=== PATIENT | female | born 1990 | race Two or more races ===

== ENCOUNTER 2016-06-16 16:23 | Inpatient (IN) | payer BC ==
[~2016-06-16] VITALS: Ht 167.6 cm; Wt 74.8 kg
[2016-06-16 20:36] VITALS: Ht 167.6 cm; Wt 74.8 kg
[2016-06-16 20:45] VITALS: BP 118/68; PULSE 68; RESP 18
[2016-06-16] MEDS ORDERED: HYDROCODONE/APAP (5/325) TAB PO PRN (21:00)
[2016-06-16] MEDS ORDERED: ACETAMINOPHEN 325 MG TAB PO PRN (21:00)
[2016-06-16] MEDS ORDERED: ZOLPIDEM 5 MG TAB PO PRN (21:00)
[2016-06-16] MEDS: DEXTROSE 5%-0.45% NACL 1,000 ML IV SCH (21:39)
[2016-06-16] MEDS: morphine 2 MG INJ IV PRN (21:42)
[2016-06-16] MEDS: ONDANSETRON 4 MG INJ IV PRN (21:45)
[2016-06-17 05:21] LABS: INR 1.05; PROTIME 13.7 Sec (12.2-14.2); PT RATIO 1.1
[2016-06-17 05:22] LABS: PARTIAL THROMBOPLASTIN TIME 28.4 Sec (25.0-35.0)
[2016-06-17 05:27] LABS: BASOPHILS % 0.4 % (0.0-2.0); EOSINOPHILS # 0.1 10^3/ul (0.0-0.5); EOSINOPHILS % 1.5 % (0.0-7.0); HEMATOCRIT 36.3 % (37.0-47.0); HEMOGLOBIN 12.4 g/dl (12.0-16.0); LYMPHOCYTES # 3.1 10^3/ul (0.8-2.9); MEAN CORPUSCULAR VOLUME 88.2 fl (82.0-101.0); MEAN PLATELET VOLUME 10.1 fl (7.4-10.4); MONOCYTE # 0.5 10^3/ul (0.3-0.9); MONOCYTES % 5.6 % (0.0-11.0); NEUTROPHIL # 4.5 10^3/ul (1.6-7.5); NEUTROPHILS % 54.5 % (39.0-77.0); PLATELET COUNT 170 10^3/UL (140-440); RED BLOOD COUNT 4.12 10^6/ul (4.20-5.40); RED CELL DISTRIBUTION WIDTH 12.9 % (11.5-14.5); UNCORRECTED WBC 8.2 10^3/ul (4.8-10.8); WHITE BLOOD COUNT 8.2 10^3/ul (4.8-10.8)
[2016-06-17 05:33] LABS: ALBUMIN 3.7 g/dl (3.3-4.9)
[2016-06-17 05:34] LABS: POTASSIUM 3.5 mmol/L (3.5-5.1)
[2016-06-17] MEDS: PANTOPRAZOLE 40 MG INJ IV SCH (05:34)
[2016-06-17 05:36] LABS: ALBUMIN/GLOBULIN RATIO 1.32; BILIRUBIN,INDIRECT 0.9 mg/dl (0-1.1); BILIRUBIN,TOTAL 0.9 mg/dl (0.2-1.3); CREATININE 0.51 mg/dl (0.44-1.00); TOTAL PROTEIN 6.5 g/dl (6.1-8.1)
[2016-06-17 05:37] LABS: CALCIUM 8.6 mg/dl (8.4-10.2)
[2016-06-17 05:47] LABS: CONDITION 1
[2016-06-17 05:54] LABS: THYROID STIMULATING HORMONE 0.561 MIU/L (0.465-4.680)
[2016-06-17 08:08] VITALS: BP 111/62; RESP 16
[2016-06-17] MEDS: morphine 2 MG INJ IV PRN ×2 (10:20→22:01)
[2016-06-17] MEDS: DEXTROSE 5%-0.45% NACL 1,000 ML IV SCH (10:23)
--- NOTE | 2016-06-17 12:04 | QN ---
Documentation Comment [id number] KASSI GARCIA MD Jun 17, 2016 12:04
--- NOTE | 2016-06-17 12:43 | HP ---
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 Initially she was told she has anxiety, but hematocrit 36.3, sodium 140, potassium 3.5. Patient was transferred for further management. The patient had an ultrasound done there that showed gallstones. The patient is being monitored for further management, complaints of nausea and vomiting earlier, not at this point. Sodium see flow sheet, potassium 3.9. Patient has hematocrit 43.5 The patient was transferred for further management. PAST MEDICAL HISTORY: The patient has history of obesity, history of gastric banding. ALLERGY HISTORY: NEGATIVE. FAMILY HISTORY: Negative. SOCIAL HISTORY: Negative. MEDICATIONS AT HOME: Xanax. REVIEW OF SYSTEMS: HEENT: Unremarkable. RESPIRATORY: Unremarkable. CARDIOVASCULAR: Unremarkable. ABDOMEN: As mentioned above. EXTREMITIES: Unremarkable. GENITOURINARY: Unremarkable. MUSCULOSKELETAL: Unremarkable. PHYSICAL EXAMINATION: GENERAL: The patient is awake. VITAL SIGNS: Stable. HEAD: Atraumatic, normocephalic. Pupils equal, reactive to light. NECK: Supple. No JVD. LUNGS: Clear. CARDIOVASCULAR: S1, S2 normal. No rub or murmur. ABDOMEN: Soft, nontender. Bowel sounds present. No palpable mass or hepatosplenomegaly. No guarding, rebound tenderness. EXTREMITIES: There is no cyanosis, clubbing, or edema. CENTRAL NERVOUS SYSTEM: The patient is awake, alert, no focal deficit. LABORATORY DATA: As mentioned above. IMPRESSION: 1. Abdominal pain. 2. Gallstone. 3. History of laparoscopic banding. PLAN: To keep her n.p.o., IV fluid obtained. Obtain surgical consultation, PPI. Orders were done. Dictated By: KASSI GARCIA MD BS/NTS Conf#: [id number] DID#: [id number] [email or web address]
--- NOTE | 2016-06-17 14:09 | CONS ---
DATE OF ADMISSION: 06/16/2016 DATE OF CONSULTATION: 06/17/2016 TYPE OF CONSULTATION: Surgical. REFERRING PHYSICIAN: Gamaliel Milian MD CHIEF COMPLAINT: 1. Abdominal pain. 2. Gallstones. 3. BMI of 27. 4. Lap band. HISTORY OF PRESENT ILLNESS: Ms. Alejandra Maldonado is a 25-year-old female who has had multiple episo briana of epigastric abdominal pain, with radiation to the right back, associated with nausea and some chest pain. Previously she was told she has anxiety attacks. This last time she presented to [facility], where ultrasound identified gallstones, without inflammation. Labs were within normal. The patient also had chest x-ray and abdominal x-ray, which showed the band to be in normal positi on and angulation. The patient is transferred here for further care and treatment. A surgical cons ult is obtained for further evaluation. She denies any vomiting. She denies any fevers or chills. She is able to tolerate oral intake. She has normal bowel function. No dysuria or vaginal dischar ge. No trauma or sick contacts. No headache, visual or neurologic changes. No dysuria. PAST MEDICAL HISTORY: 1. History of obesity. 2. Gallstones. 3. Abdominal pain. 4. Back pain. 5. Chest pain. PAST SURGICAL HISTORY: 1. Lap band by Dr. Morris in [place] 6 years ago. 2. Nose job. MEDICATIONS: As per MAR. ALLERGIES: NONE. SOCIAL HISTORY: Denies alcohol, drugs or smoking cigarettes; however, smokes a lot of hookah. She is a nursing executive. FAMILY HISTORY: Noncontributory. REVIEW OF SYSTEMS: A 12-point review of systems was negative unless addressed in the HPI. PHYSICAL EXAMINATION: VITAL SIGNS: Temperature 98.4, pulse 60s to 90s, blood pressure 111/62, saturating 99% on room air. GENERAL: In no acute distress. HEENT: Pupils are equal and reactive. No scleral icterus. Mucous membranes are moist. NECK: Supple. No JVD. No crepitus. PULMONARY: Normal respiratory effort. No wheezing. CARDIAC: S1, S2 present. ABDOMEN: Soft, nontender. No rebound, no guarding. Negative Cotton's. No palpable hernias. Her port is just left lateral and superior to the umbilicus. EXTREMITIES: No edema. VASCULAR: Capillary refill is less than 2 seconds. NEUROLOGIC: Alert and oriented, moves all 4 extremities grossly. LYMPHATICS: Normal cervical and inguinal lymph nodes. LABORATORY AND RADIOGRAPHIC: As per chart and HPI. ASSESSMENT AND PLAN: Ms. Alejandra Maldonado is a 25-year-old female with: 1. Abdominal pain. Could be secondary to symptomatic cholelithiasis, and/or gallbladder dyskinesia , and/or peptic ulcer disease, and/or gastritis and/or lap band issues. Recommend antacids. Recomm end a GI evaluation. The patient wants to proceed with a cholecystectomy and that is a viable optio n; however, I advised the patient that I would not be able to guarantee the pain and her symptoms wo uld resolve. 2. History of morbid obesity. Status post lap band. Continue lap band maintenance. The patient w ill follow up with her bariatric surgeon. 3. Nausea. Probably secondary to #1. 4. Tobacco/Hookah smoker. Patient was encouraged to decrease or stop her tobacco use, especially w ith Hookah, you get a higher intense dose of it. Thank you very much for consulting me in this patient's care. Dictated By: YONATHAN BROWNE/GENOVEVA Conf#: [id number] DID#: [id number]
--- NOTE | 2016-06-17 18:50 | RADRPT ---
AMENDMENT: 06/17/2016 10:07:21 PM Malia Pennington MD Delayed images of the abdomen obtained at 4 hours post injection demonstrate a visualization of ashli rointestinal activity. Therefore, there is no definite evidence to suggest the presence of a common bile duct obstruction. PROCEDURE: HIDA scan CLINICAL INDICATION: 25 -year-old patient with abdominal pain. TECHNIQUE: Following the intravenous injection of 7.9 mCi of Tc-99m mebrofenin, multiple images of the abdomen were obtained up to 90 minutes post injection. COMPARISON: No prior studies. FINDINGS: The liver is promptly visualized, demonstrates homogeneous distribution of radionuclide. There is visualization of the common bile duct and gallbladder within normal time. Multiple images of the abdomen obtained up to 90 minutes post injection do not reveal physiologic sharlene wel activity. IMPRESSION: 1. No definite visualization of physiologic bowel activity up to 90 minutes post injection. 2. No evidence of a cystic duct obstruction. Delayed images to follow. RPTAT: QQ .Malia Pennington MD, MD Date Time Electronically viewed and signed by .Malia Pennington MD, on 06/17/2016 22:07 .L/
[2016-06-17 20:16] VITALS: BP 109/66; RESP 20
[2016-06-17] MEDS: ONDANSETRON 4 MG INJ IV PRN (22:00)
[2016-06-18] MEDS: DEXTROSE 5%-0.45% NACL 1,000 ML IV SCH ×4 (01:36→20:29)
[2016-06-18] MEDS: PANTOPRAZOLE 40 MG INJ IV SCH (05:42)
[2016-06-18 05:58] LABS: ALBUMIN 3.5 g/dl (3.3-4.9)
[2016-06-18 05:59] LABS: POTASSIUM 3.5 mmol/L (3.5-5.1)
[2016-06-18 06:01] LABS: ALBUMIN/GLOBULIN RATIO 1.25; BILIRUBIN,INDIRECT 0.7 mg/dl (0-1.1); BILIRUBIN,TOTAL 0.7 mg/dl (0.2-1.3); CREATININE 0.48 mg/dl (0.44-1.00); TOTAL PROTEIN 6.3 g/dl (6.1-8.1)
[2016-06-18 06:02] LABS: CALCIUM 8.6 mg/dl (8.4-10.2)
[2016-06-18 07:36] VITALS: BP 118/57; RESP 16
--- NOTE | 2016-06-18 10:43 | PN ---
Date/Time of Note Date/Time of Note DATE: 06/18/16 TIME: 10:38 Assessment/Plan Lines/Catheters Boss in Place (from [facility]): No Assessment/Plan Chief Complaint/Hosp Course 1. Abdominal pain. Could be secondary to symptomatic cholelithiasis, and/or gallbladder dyskinesia, and/or peptic ulcer disease, and/or gastritis and/or lap band issues. -Recommend antacids. -The patient wants to proceed with a cholecystectomy and that is a viable option ; however, I advised the patient that I would not be able to guarantee the pain and her symptoms would resolve. 2. History of morbid obesity. Status post lap band. Continue lap band maintenance. The patient will follow up with her bariatric surgeon. 3. Nausea. Probably secondary to #1. 4. Tobacco/Hookah smoker. Patient was encouraged to decrease or stop her tobacco use, especially with Hookah, you get a higher intense dose of it. Thank you Problems: Subjective 24 Hr Interval Summary Min nausea. No f/c//v/cp/sob/cp/mcguire/visual or neuro changes. No dysuria. Min pain. HIDA normal. Labs noted. Exam/Review of Systems Vital Signs Vitals Vital Signs Date Time Temp Pulse Resp B/P Pulse Ox O2 Delivery O2 Flow Rate FiO2 06/18/16 07:36 98.2 63 16 118/57 97 06/16/16 20:45 Room Air Intake and Output 06/17/16 06/17/16 06/18/16 15:00 23:00 07:00 Intake Total 475 ml 400 ml 600 ml Output Total 2 ml Balance 475 ml 398 ml 600 ml Exam Free Text/Dictation GENERAL: In no acute distress. HEENT: Pupils are equal and reactive. No scleral icterus. Mucous membranes are moist. NECK: Supple. No JVD. No crepitus. PULMONARY: Normal respiratory effort. No wheezing. CARDIAC: S1, S2 present. ABDOMEN: Soft, nontender. No rebound, no guarding. Negative Cotton's. No palpable hernias. Her port is just left lateral and superior to the umbilicus. EXTREMITIES: No edema. VASCULAR: Capillary refill is less than 2 seconds. NEUROLOGIC: Alert and oriented, moves all 4 extremities grossly. LYMPHATICS: Normal cervical and inguinal lymph nodes. Results Result Diagram: 06/17/16 0444 06/18/16 0520 YONATHAN GARCIA MD Jun 18, 2016 10:43
--- NOTE | 2016-06-18 17:35 | PN ---
Date/Time of Note Date/Time of Note DATE: 06/18/16 TIME: 17:34 Assessment/Plan VTE Prophylaxis VTE Prophylaxis Intervention: other Lines/Catheters IV [facility] Type [facility]from [facility] Peripheral IV Urinary Cath still in place: No Assessment/Plan Chief Complaint/Hosp Course IMPRESSION: 1. Abdominal pain. 2. Gallstone. 3. History of laparoscopic banding. plan per gi Problems: Subjective 24 Hr Interval Summary Cardiovascular: no complaints Gastrointestinal: pain (less) Exam/Review of Systems Vital Signs Vitals Vital Signs Date Time Temp Pulse Resp B/P Pulse Ox O2 Delivery O2 Flow Rate FiO2 06/18/16 07:36 98.2 63 16 118/57 97 06/16/16 20:45 Room Air Intake and Output 06/17/16 06/17/16 06/18/16 15:00 23:00 07:00 Intake Total 475 ml 400 ml 600 ml Output Total 2 ml Balance 475 ml 398 ml 600 ml Exam Respiratory: clear to auscultation Cardiovascular: regular rate and rhythm Gastrointestinal: soft Musculoskeletal: nl extremities to inspection Results Result Diagram: 06/17/16 0444 06/18/16 0520 Results 24 hrs Laboratory Tests Test 06/18/16 05:20 Alanine Aminotransferase (ALT/SGPT) 29 Albumin 3.5 Albumin/Globulin Ratio 1.25 Alkaline Phosphatase 40 L Anion Gap 13 Aspartate Amino Transf (AST/SGOT) 18 Blood Urea Nitrogen 6 L Calcium Level 8.6 Carbon Dioxide Level 27 Chloride Level 105 Creatinine 0.48 Direct Bilirubin 0.00 Globulin 2.80 Glucose Level 91 Indirect Bilirubin 0.7 Potassium Level 3.5 Sodium Level 141 Total Bilirubin 0.7 Total Protein 6.3 Medications Medications Current Medications Dextrose/Sodium Chloride (D5-1/2ns) 1,000 ml @ 70 mls/hr [id number] IV Last administered on 06/18/16 05:42; Admin Dose 70 MLS/HR; Start 06/16/16 at 21:00 Pantoprazole (Protonix Iv) 40 mg DAILY@06 IV Last administered on 06/18/16 05: 42; Admin Dose 40 MG; Start 06/17/16 at 06:00 Ondansetron HCl (Zofran Inj) 4 mg Q4H PRN IV NAUSEA AND/OR VOMITING Last administered on 06/17/16 22:00; Admin Dose 4 MG; Start 06/16/16 at 21:00 Acetaminophen (Tylenol Tab) 650 mg Q4H PRN PO PAIN AND OR ELEVATED TEMP; Start 06/16/16 at 21:00 Acetaminophen/ Hydrocodone Bitart ([place] (5/325)) 1 tab Q4H PRN PO moderate pain; Start 06/16/16 at 21:00 Morphine Sulfate (morphine) 2 mg Q4H PRN IV severe pain Last administered on t 22:01; Admin Dose 2 MG; Start 06/16/16 at 21:00 Zolpidem Tartrate (Ambien) 5 mg HS PRN PO INSOMNIA; Start 06/16/16 at 21:00 KASSI GARCIA MD Jun 18, 2016 17:35
[2016-06-18 19:00] VITALS: BP 120/65; RESP 18
[2016-06-19] VITALS (50 sets, daily range): BP systolic 70–126; BP diastolic 37–85; PULSE 56–97; RESP 14–29
[2016-06-19] MEDS: PANTOPRAZOLE 40 MG INJ IV SCH (05:38)
[2016-06-19] MEDS: DEXTROSE 5%-0.45% NACL 1,000 ML IV SCH ×2 (06:12→14:36)
[2016-06-19] MEDS ORDERED: EPINEPHrine 0.1 MG/ML SYG ONE (07:00)
[2016-06-19] MEDS ORDERED: PROPOFOL 200 MG INJ ONE (07:00)
[2016-06-19] MEDS ORDERED: PROPOFOL 1000 MG INJ ONE (07:00)
[2016-06-19] MEDS ORDERED: LIDOCAINE 1% (STERILE-PAK) 30 ML INJ ONE (10:22)
[2016-06-19] MEDS ORDERED: BUPIVACAINE 0.25%/EPI (SDV) 30 ML INJ ONE (10:23)
[2016-06-19] MEDS ORDERED: SUCCINYLCHOLINE CHLORIDE 100 MG/5 ML SYG IV ONE (10:45)
[2016-06-19] MEDS ORDERED: CEFAZOLIN 1 GM INJ ONE (10:45)
[2016-06-19] MEDS ORDERED: MIDAZOLAM 1 MG/ML 2 ML INJ ONE (10:45)
[2016-06-19] MEDS ORDERED: ROCURONIUM 50 MG INJ ONE (10:45)
[2016-06-19] MEDS ORDERED: PROPOFOL 20 ML ONE (10:45)
[2016-06-19] MEDS ORDERED: ONDANSETRON 4 MG INJ ONE (10:46)
[2016-06-19] MEDS ORDERED: DEXAMETHASONE 4 MG/ML 1 ML INJ ONE (10:46)
[2016-06-19] MEDS ORDERED: FENTAnyl 50 MCG/ML VIAL ONE (10:46)
[2016-06-19] MEDS ORDERED: ROPIVACAINE 0.2% 20 ML VIAL ONE (10:49)
--- NOTE | 2016-06-19 11:46 | PN ---
Date/Time of Note Date/Time of Note DATE: 06/19/16 TIME: 11:43 Assessment/Plan VTE Prophylaxis VTE Prophylaxis Intervention: SCD's Lines/Catheters IV Catheter Type (from [facility]rs): Peripheral IV Urinary Cath still in place: No Assessment/Plan Assessment/Plan 1. Symptomatic Cholelithiasis with Gallbladder Dyskinesia 2. History of morbid obesity. Status post lap band. 3. Nausea. Probably secondary to #1. 4. Tobacco/Hookah smoker. Plan: Pt desaturated prior to surgery and intubated for resp faiilure- surgery was aborted, transferred to ICU pulmonary consult to see pt General surgery has been following patient continue current care will follow up on Surgical follow up plan Subjective 24 Hr Interval Summary Free Text/Dictation pt desaturated prior to surgery , intubated on ventilator now transferred to ICU Exam/Review of Systems Vital Signs Vitals Vital Signs Date Time Temp Pulse Resp B/P Pulse Ox O2 Delivery O2 Flow Rate FiO2 06/19/16 07:34 98.4 53 20 120/56 98 06/16/16 20:45 Room Air Intake and Output 06/18/16 06/18/16 06/19/16 15:00 23:00 07:00 Intake Total 1600 ml 1270 ml Output Total 400 ml Balance 1600 ml 870 ml Exam intubated on ventilator Bilateral coarse BS+ S1 S2 RRR Soft, morbidly obese 1+ edema No c yanosis Results Result Diagram: 06/17/16 0444 06/18/16 0520 Medications Medications Current Medications Dextrose/Sodium Chloride (D5-1/2ns) 1,000 ml @ 70 mls/hr [id number] IV Last administered on 06/18/16 20:29; Admin Dose 70 MLS/HR; Start 06/16/16 at 21:00 Pantoprazole (Protonix Iv) 40 mg DAILY@06 IV Last administered on 06/19/16 05: 38; Admin Dose 40 MG; Start 06/17/16 at 06:00 Ondansetron HCl (Zofran Inj) 4 mg Q4H PRN IV NAUSEA AND/OR VOMITING Last administered on 06/17/16 22:00; Admin Dose 4 MG; Start 06/16/16 at 21:00 Acetaminophen (Tylenol Tab) 650 mg Q4H PRN PO PAIN AND OR ELEVATED TEMP; Start 06/16/16 at 21:00 Acetaminophen/ Hydrocodone Bitart ([place] (5/325)) 1 tab Q4H PRN PO moderate pain; Start 06/16/16 at 21:00 Morphine Sulfate (morphine) 2 mg Q4H PRN IV severe pain Last administered on t 22:01; Admin Dose 2 MG; Start 06/16/16 at 21:00 Zolpidem Tartrate (Ambien) 5 mg HS PRN PO INSOMNIA; Start 06/16/16 at 21:00 GWYN CUNNINGHAM MD Jun 19, 2016 11:46
[2016-06-19] MEDS ORDERED: PROPOFOL 100 ML ONE (12:03)
--- NOTE | 2016-06-19 12:12 | PN ---
Date/Time of Note Date/Time of Note DATE: 06/19/16 TIME: 12:08 Assessment/Plan Lines/Catheters IV C[facility]ter Type (from [facility]): Peripheral IV Boss in Place (from [facility]): No Assessment/Plan Chief Complaint/Hosp Course 1. Abdominal pain. Could be secondary to symptomatic cholelithiasis, and/or gallbladder dyskinesia, and/or peptic ulcer disease, and/or gastritis and/or lap band issues. -antacids. -consider band adjustment. patient reports following with her bariatric surgeon and it is not causing her any difficulty -the patient wants to proceed with a cholecystectomy and that is a viable option ; however, I advised the patient that I would not be able to guarantee the pain and her symptoms would resolve. 2. History of morbid obesity. Status post lap band. Continue lap band maintenance. The patient will follow up with her bariatric surgeon. 3. Nausea. Probably secondary to #1. 4. Tobacco/Hookah smoker. Patient was encouraged to decrease or stop her tobacco use, especially with Hookah, you get a higher intense dose of it. Thank you Problems: Subjective 24 Hr Interval Summary Min nausea. No f/c//v/cp/sob/cp/mcguire/visual or neuro changes. No dysuria. Min pain. Exam/Review of Systems Vital Signs Vitals Vital Signs Date Time Temp Pulse Resp B/P Pulse Ox O2 Delivery O2 Flow Rate FiO2 06/19/16 07:34 98.4 53 20 120/56 98 06/16/16 20:45 Room Air Intake and Output 06/18/16 06/18/16 06/19/16 15:00 23:00 07:00 Intake Total 1600 ml 1270 ml Output Total 400 ml Balance 1600 ml 870 ml Exam Free Text/Dictation GENERAL: In no acute distress. HEENT: Pupils are equal and reactive. No scleral icterus. Mucous membranes are moist. NECK: Supple. No JVD. No crepitus. PULMONARY: Normal respiratory effort. No wheezing. CARDIAC: S1, S2 present. ABDOMEN: Soft, nontender. No rebound, no guarding. Negative Cotton's. No palpable hernias. Her port is just left lateral and superior to the umbilicus. EXTREMITIES: No edema. VASCULAR: Capillary refill is less than 2 seconds. NEUROLOGIC: Alert and oriented, moves all 4 extremities grossly. LYMPHATICS: Normal cervical and inguinal lymph nodes. Results Result Diagram: 06/17/16 0444 06/18/16 0520 YONATHAN GARCIA MD Jun 19, 2016 12:12
--- NOTE | 2016-06-19 12:21 | OPR ---
Date/Time of Note Date/Time of Note DATE: 06/19/16 TIME: 12:12 Operative Report Procedure Date: Jun 19, 2016 Preoperative Diagnosis 1. Aspiration right at the time of intubation with desaturation 2. BMI 27 3. Lap band 4. Symptomatic cholelithiasis Postoperative Diagnosis 1. Aspiration right at the time of intubation with desaturation 2. BMI 27 3. Lap band 4. Symptomatic cholelithiasis Operation Performed 1. Bronchoscopy Surgeon: YONATHAN GARCIA MD Anesthesia: general Anesthesiologist: TITI DENNEY DO Estimated Blood Loss: minimal Tubes/Drains ETT Complications: None Pt Condition Post Procedure: stable Disposition: PACU Indications Patient was taken to the OR for a laparoscopic cholecystectomy. At the time of induction patient started vomiting and has saturations dropped significantly and skin color change to blue. At this point I was called into the room. The patient was intubated by anesthesiologist. Both sides sounded very junky. Decision was made to do a bronchoscopy to clean out the lungs as possible. Procedure Description Bronchoscope was inserted through the ET tube after saturations are 100%. There was minimal as serous fluid at the kelsey. This was suctioned out. No significant other amounts of fluid was identified. ET tube was above 3 cm above the kelsey. Bronchoscope was removed. YONATHAN GARCIA MD Jun 19, 2016 12:21
[2016-06-19] MEDS ORDERED: PANTOPRAZOLE 40 MG INJ IV ONE (12:30)
[2016-06-19] MEDS: PROPOFOL 100 ML IV SCH ×4 (12:30→22:57)
[2016-06-19] MEDS ORDERED: PROPOFOL 100 ML IV SCH (12:30)
[2016-06-19 12:33] LABS: AADO2 Arterial 249.2 mmHg (7.0-24.0); Allen Test ACCEPTAB; Arterial Base Excess -0.8 mmol/L (-3.0-3); Arterial COHb 0.5 % (0.0-3.0); Arterial HCO3 25.2 mmol/L (22.0-26.0); Arterial MetHb 0.2 % (0.0-1.5); Arterial Total Hemglobin 14.8 g/dl (12.0-18.0); MODE VENT - AC
--- NOTE | 2016-06-19 12:37 | RADRPT ---
PROCEDURE: XR Chest. CLINICAL INDICATION: Status post intubation TECHNIQUE: Single portable view of the chest was obtained COMPARISON: None FINDINGS: There is a new endotracheal tube 4 cm above the kelsey. There is a nasogastric tube coiled in the distal esophagus and extending back into the upper neck. The heart is normal in size. There is left upper lobe and right lower lobe atelectasis. There is no pleural effusion or pneumoth orax. RPTAT: AA IMPRESSION: New endotracheal tube in appropriate position. Nasogastric tube coiled in the distal esophagus and extending back into the upper neck. Removal and reinsertion is recommended. A call report was made and the findings discussed with nurse Yeh at 06/19/2016 12:34:13 PM. .Kraig Mena MD, Date Time Electronically viewed and signed by .Kraig Mena MD, on 06/19/2016 12:36 .S/
[2016-06-19 13:34] LABS: BASOPHILS % 0.2 % (0.0-2.0); EOSINOPHILS # 0.1 10^3/ul (0.0-0.5); HEMATOCRIT 46.7 % (37.0-47.0); HEMOGLOBIN 15.6 g/dl (12.0-16.0); LYMPHOCYTES % 17.4 % (15.0-51.0); MEAN CORPUSCULAR HEMOGLOBIN 29.6 pg (29.0-33.0); MEAN CORPUSCULAR HGB CONC 33.5 g/dl (32.0-37.0); MEAN CORPUSCULAR VOLUME 88.4 fl (82.0-101.0); MEAN PLATELET VOLUME 9.8 fl (7.4-10.4); MONOCYTE # 0.1 10^3/ul (0.3-0.9); MONOCYTES % 0.4 % (0.0-11.0); NEUTROPHIL # 9.2 10^3/ul (1.6-7.5); PLATELET COUNT 184 10^3/UL (140-440); RED BLOOD COUNT 5.28 10^6/ul (4.20-5.40); RED CELL DISTRIBUTION WIDTH 13.2 % (11.5-14.5); UNCORRECTED WBC 11.4 10^3/ul (4.8-10.8); WHITE BLOOD COUNT 11.4 10^3/ul (4.8-10.8)
[2016-06-19 13:36] LABS: CONDITION 1
[2016-06-19] MEDS: PIPER-TAZO 3.375 GM IV (PMX) 100 ML IVPB SCH ×3 (14:07→23:37)
[2016-06-19] MEDS: ENOXAPARIN 40 MG/0.4 ML SYG SC SCH (14:08)
[2016-06-19 14:23] LABS: ALBUMIN 4.1 g/dl (3.3-4.9)
[2016-06-19 14:24] LABS: POTASSIUM 3.7 mmol/L (3.5-5.1)
[2016-06-19 14:26] LABS: ALBUMIN/GLOBULIN RATIO 1.28; BILIRUBIN,INDIRECT 0.8 mg/dl (0-1.1); BILIRUBIN,TOTAL 0.8 mg/dl (0.2-1.3); CREATININE 0.55 mg/dl (0.44-1.00); TOTAL PROTEIN 7.3 g/dl (6.1-8.1)
[2016-06-19 14:27] LABS: CALCIUM 9.1 mg/dl (8.4-10.2)
[2016-06-19] MEDS ORDERED: FENTAnyl 1,000 MCG in DEXTROSE 5% 80 ML IV SCH (15:00)
--- NOTE | 2016-06-19 18:28 | CONS ---
DATE OF ADMISSION: 06/16/2016 DATE OF CONSULTATION: 06/19/2016 TYPE OF CONSULTATION: Pulmonary HISTORY OF PRESENT ILLNESS: Briefly, this is a 25-year-old female with a history of lap band surger y who was admitted 2 days prior with abdominal pain, found to have cholecystitis. She was planned t o undergo laparoscopic cholecystectomy today where her course was complicated by aspiration of fluid content despite being n.p.o. This possibly resulted due to the fact that she had a lap band and mcguire d some accumulation of bilious contents above the lap band. She was placed on a ventilator and brooks sferred from the operating room to the ICU. PAST MEDICAL HISTORY: As above. PAST SURGICAL HISTORY: Lap band. MEDICATIONS: Please see MAR. ALLERGIES: NONE. SOCIAL HISTORY: No tobacco, alcohol or illicit drug use. FAMILY HISTORY: Noncontributory. REVIEW OF SYSTEMS: Unable to obtain. PHYSICAL EXAMINATION: VITAL SIGNS: Blood pressure 120/56, oxygen saturation 98% on 100% Heart rate is 63, temperature is 98.4. HEENT: Normocephalic, atraumatic. NECK: Supple, no thyromegaly. ET tube is in place. CARDIOVASCULAR: Regular rate and rhythm, bradycardic, S1 and S2. CHEST: Diffuse wheezing bilaterally, left greater than right. ABDOMEN: Soft, nontender. EXTREMITIES: No cyanosis, clubbing or edema. LABORATORY DATA: Within normal limits. Chest x-ray is pending. However, per preliminary just at the bedside shows an ET tube being about 7 cm above the kelsey and a new left perihilar infiltrate, possibly due to aspiration. IMPRESSION: 1. Aspiration pneumonitis resulting in respiratory failure requiring intubation and mechanical vent ilation. 2. Cholecystitis, awaiting cholecystectomy. 3. History of lap band. RECOMMENDATIONS: 1. Vent support, reduce tidal volume to 450, reduce FIO2 as tolerated. I have already dropped it d own to 50% and obtain ABG. 2. Advance ET tube by 3 cm. 3. Although not significantly required for an aspiration pneumonitis, we will start Zosyn for the t goldie being and consider de-escalation very shortly. 4. Deep venous thrombosis prophylaxis with Lovenox and gastrointestinal prophylaxis with Protonix. Case discussed with Dr. Sandhu. Dictated By: WINNIE FAUST/GENOVEVA Conf#: [id number] DID#: [id number] CC: YONATHAN SANDHU MD; ;*[facility]
[2016-06-19] MEDS: ONDANSETRON 4 MG INJ IV PRN (22:36)
[2016-06-19] MEDS ORDERED: LORAZEPAM 2 MG INJ IV PRN (23:00)
[2016-06-20] VITALS (81 sets, daily range): BP systolic 63–130; BP diastolic 26–90; PULSE 67–122; RESP 13–33
[2016-06-20] MEDS: PROPOFOL 100 ML IV SCH ×2 (03:35→09:37)
[2016-06-20] MEDS: DEXTROSE 5%-0.45% NACL 1,000 ML IV SCH ×2 (04:41→12:01)
[2016-06-20 04:58] LABS: Allen Test ACCEPTAB; Arterial Base Excess -0.2 mmol/L (-3.0-3); Arterial COHb 0.1 % (0.0-3.0); Arterial Fraction of Oxyhgb 97.8 % (93.0-99.0); Arterial HCO3 24.4 mmol/L (22.0-26.0); Arterial MetHb 0.2 % (0.0-1.5); Arterial Total Hemglobin 13.4 g/dl (12.0-18.0); MODE VENT - AC
[2016-06-20] MEDS: PIPER-TAZO 3.375 GM IV (PMX) 100 ML IVPB SCH ×3 (05:50→18:08)
[2016-06-20] MEDS: PANTOPRAZOLE 40 MG INJ IV SCH (05:50)
[2016-06-20 07:04] LABS: EOSINOPHILS # 0.1 10^3/ul (0.0-0.5); EOSINOPHILS % 0.8 % (0.0-7.0); HEMATOCRIT 35.5 % (37.0-47.0); HEMOGLOBIN 12.2 g/dl (12.0-16.0); LYMPHOCYTES # 1.2 10^3/ul (0.8-2.9); LYMPHOCYTES % 8.3 % (15.0-51.0); MEAN CORPUSCULAR HGB CONC 34.3 g/dl (32.0-37.0); MEAN CORPUSCULAR VOLUME 87.5 fl (82.0-101.0); MEAN PLATELET VOLUME 10.1 fl (7.4-10.4); MONOCYTE # 0.3 10^3/ul (0.3-0.9); NEUTROPHIL # 12.3 10^3/ul (1.6-7.5); NEUTROPHILS % 88.9 % (39.0-77.0); PLATELET COUNT 132 10^3/UL (140-440); RED BLOOD COUNT 4.05 10^6/ul (4.20-5.40); RED CELL DISTRIBUTION WIDTH 13.2 % (11.5-14.5); UNCORRECTED WBC 13.9 10^3/ul (4.8-10.8); WHITE BLOOD COUNT 13.9 10^3/ul (4.8-10.8)
[2016-06-20 07:09] LABS: CONDITION 1
[2016-06-20 07:13] LABS: INR 1.38; PT RATIO 1.3
[2016-06-20 07:14] LABS: PARTIAL THROMBOPLASTIN TIME 26.3 Sec (25.0-35.0)
[2016-06-20 07:15] LABS: ALBUMIN 3.1 g/dl (3.3-4.9); POTASSIUM 3.4 mmol/L (3.5-5.1)
[2016-06-20 07:17] LABS: CREATININE 0.5 mg/dl (0.44-1.00)
[2016-06-20 07:18] LABS: ALBUMIN/GLOBULIN RATIO 1.19; CALCIUM 8.2 mg/dl (8.4-10.2); TOTAL PROTEIN 5.7 g/dl (6.1-8.1)
--- NOTE | 2016-06-20 08:59 | RADRPT ---
Vent Rate: 80 bpm RR Interval: 0 msec NE Interval: 122 msec QRS Duration: 100 msec QT Interval: 398 msec QTC Interval: 459 msec P-R-T Riddle: 57 - 96 - 46 degrees Normal sinus rhythm Right atrial enlargement Rightward axis Incomplete right bundle branch block Nonspecific ST abnormality Abnormal ECG Electronically Signed By: Yaya Sullivan [id number]
[2016-06-20] MEDS: ENOXAPARIN 40 MG/0.4 ML SYG SC SCH (09:00)
--- NOTE | 2016-06-20 10:15 | RADRPT ---
PROCEDURE: XR Chest. CLINICAL INDICATION: ACUTE RESP FAILURE, INTUBATED ON VENTILAOTR TECHNIQUE: Portable single view of the chest COMPARISON: 06/19 FINDINGS: Endotracheal tube remains in good position. The nasogastric tube has been repositioned and now loop s in the lower chest but the distal end is in the stomach. This may be looping within a hiatal dinah ia. There has been significant increase in patchy pulmonary opacity bilaterally which may be due to infection or edema. The heart size does not appear enlarged and no pleural effusion is seen. Prob able gastric band is seen in the left upper quadrant. IMPRESSION: Tip of a nasogastric tube now within the stomach although looped in either the distal esophagus or m ore likely a hiatal hernia. Significant development of patchy bilateral lung infiltrates which may be due to infection or edema. Endotracheal tube remains in good position. RPTAT: HLBE Physician Renzo Date Time Electronically viewed and signed by Katey Holden Physician on 06/20/2016 10:15 LE/
--- NOTE | 2016-06-20 10:43 | PN ---
Date/Time of Note Date/Time of Note DATE: 06/20/16 TIME: 10:39 Assessment/Plan VTE Prophylaxis VTE Prophylaxis Intervention: LMWH Lines/Catheters IV Catheter Type (from Nrsg): Peripheral IV Urinary Cath still in place: Yes Reason Cath still needed: urinary retention, other (indicate) (intubated on ventilator ) Assessment/Plan Assessment/Plan 1. Aspiration pneumonitis resulting in respiratory failure requiring intubation and mechanical ventilation. 2. Recurrent Biliary colic, awaiting cholecystectomy. 3. History of lap band. 4. Morbid obesity Plan: continue Ventilator care as per pulmonary-w eaning plan for today General surgery following lovenox for DVT prophylaxis IV abx IVF GI Consutl requested Dr.David Olivarez to see pt Subjective 24 Hr Interval Summary Free Text/Dictation pt remains intubated, GI consult requested for Evaluation , Pulmonary following , required IV ativan for agitation overnight Exam/Review of Systems Vital Signs Vitals Vital Signs Date Time Temp Pulse Resp B/P Pulse Ox O2 Delivery O2 Flow Rate FiO2 06/20/16 09:45 79 15 111/62 99 06/20/16 09:30 Mechanical Ventilator 06/20/16 08:00 45 06/20/16 08:00 99.3 Intake and Output 06/19/16 06/19/16 06/20/16 15:00 23:00 07:00 Intake Total 253 ml 744.94 ml 926.95 ml Output Total 130 ml 340 ml 265 ml Balance 123 ml 404.94 ml 661.95 ml Exam sedated + ET tube, No JVD Clear BS S1 S2 RRR no murmur Soft, Obese abdomen 1+ edema Results Result Diagram: 06/20/16 0633 06/20/16 0633 Results 24 hrs Laboratory Tests Test 06/19/16 12:30 06/19/16 13:20 06/20/16 05:00 06/20/16 06:33 Arterial Blood HCO3 25.2 24.4 Arterial Blood Base Excess -0.8 -0.2 Arterial Blood Oxygen Saturation 88.6 L 98.1 H Evens Test ACCEPTAB ACCEPTAB Arterial Blood Gas Puncture Site Right Radial Right Radial Arterial Blood Carboxyhemoglobin 0.5 0.1 Arterial Blood Date Drawn 06/19/2016 12:25:54 PM 06/20/2016 4:46:31 AM Arterial Blood Methemoglobin 0.2 0.2 Arterial Blood pCO2 (Temp correct) 46.3 H 39.8 Arterial Blood pH (Temp corrected) 7.353 7.405 Arterial Blood pO2 (Temp corrected) 55.2 L 112.0 H Blood Gas A-a O2 Differential 249.2 H 272.0 H Blood Gas Actual Respiration Rate 23 16 Blood Gas Low PEEP Setting 5.0 5.0 Blood Gas Modality VENT - AC VENT - AC Blood Gas Notified Time 06/19/2016 12:33:45 PM 06/20/2016 4:57:47 AM Blood Gas Notified Whom TM LW Blood Gas Respiration Rate 14.0 14.0 Blood Gas Specimen Source Blood arterial Blood arterial Blood Gas Temperature 37.0 37.0 Blood Gas Tidal Volume 450.0 450.0 FiO2 50.0 60.0 Oxyhemoglobin Percent 88.0 L 97.8 Total Hemoglobin 14.8 13.4 Alanine Aminotransferase (ALT/SGPT) 30 28 Albumin 4.1 3.1 #L Albumin/Globulin Ratio 1.28 1.19 Alkaline Phosphatase 67 # 42 Anion Gap 22 #H 14 # Aspartate Amino Transf (AST/SGOT) 100 H 12 L Basophils # 0.0 0.0 Basophils % 0.2 0.0 Blood Urea Nitrogen 5 L 6 L Calcium Level 9.1 8.2 L Carbon Dioxide Level 22 26 Chloride Level 106 104 Creatinine 0.55 0.50 Direct Bilirubin 0.00 0.00 Eosinophils # 0.1 0.1 Eosinophils % 1.0 0.8 Globulin 3.20 2.60 Glucose Level 91 95 Hematocrit 46.7 # 35.5 #L Hemoglobin 15.6 # 12.2 # Indirect Bilirubin 0.8 1.0 Lymphocytes # 2.0 1.2 Lymphocytes % 17.4 8.3 L Mean Corpuscular Hemoglobin 29.6 30.0 Mean Corpuscular Hemoglobin Concent 33.5 34.3 Mean Corpuscular Volume 88.4 87.5 Mean Platelet Volume 9.8 10.1 Monocytes # 0.1 L 0.3 Monocytes % 0.4 2.0 Neutrophils # 9.2 H 12.3 H Neutrophils % 81.0 H 88.9 H Nucleated Red Blood Cells # 0.0 0.0 Nucleated Red Blood Cells % 0.0 0.0 Platelet Count 184 132 #L Potassium Level 3.7 3.4 L Red Blood Count 5.28 # 4.05 #L Red Cell Distribution Width 13.2 13.2 Sodium Level 146 H 141 Total Bilirubin 0.8 1.0 Total Protein 7.3 # 5.7 #L Troponin I < 0.010 White Blood Count 11.4 #H 13.9 #H Blood Gas Inspiratory Pressure 24.0 Activated Partial Thromboplast Time 26.3 INR International Normalized Ratio 1.38 Prothrombin Time 17.0 #H Prothrombin Time Ratio 1.3 Medications Medications Current Medications Dextrose/Sodium Chloride (D5-1/2ns) 1,000 ml @ 70 mls/hr [id number] IV Last administered on 06/20/16 04:41; Admin Dose 70 MLS/HR; Start 06/16/16 at 21:00 Pantoprazole (Protonix Iv) 40 mg DAILY@06 IV Last administered on 06/20/16 05: 50; Admin Dose 40 MG; Start 06/17/16 at 06:00 Ondansetron HCl (Zofran Inj) 4 mg Q4H PRN IV NAUSEA AND/OR VOMITING Last administered on 06/19/16 22:36; Admin Dose 4 MG; Start 06/16/16 at 21:00 Morphine Sulfate 2 mg 2 mg Q4H PRN IV severe pain Last administered on 22:01; Admin Dose 2 MG; Start 06/16/16 at 21:00 Propofol (Diprivan) 100 ml @ 2.244 mls/ hr Q12H IV Last administered on 09:37; Admin Dose 17.952 MLS/HR; Start 06/19/16 at 12:30 Enoxaparin Sodium 40 mg 40 mg DAILY SC Last administered on 06/19/16 14:08; Admin Dose 40 MG; Start 06/19/16 at 12:30 Piperacillin Sod/ Tazobactam Sod 100 ml @ 200 mls/hr Q6 IVPB Last administered on 06/20/16 05:50; Admin Dose 200 MLS/HR; Start 06/19/16 at 12:30 Fentanyl/Dextrose (D5W) 100 ml @ 2.5 mls/hr TITRATE IV Last administered on 15:18; Admin Dose 2.5 MLS/HR; Start 06/19/16 at 15:00 Lorazepam (Ativan) 2 mg Q4 PRN IV Anxiety Last administered on 1/7/17at 22:56; Admin Dose 2 MG; Start 06/19/16 at 23:00 GWYN CUNNINGHAM MD Jun 20, 2016 10:43
[2016-06-20] MEDS ORDERED: POTASSIUM CHLORIDE 20 MEQ in SOD CHLORIDE 0.9% 100 ML IVPB ONE (11:00)
--- NOTE | 2016-06-20 11:27 | CONS ---
Date/Time of Note Date/Time of Note DATE: 06/20/16 TIME: 11:18 Assessment/Plan Assessment/Plan Chief Complaint/Hosp Course Impression: 1. Aspiration pneumonitis resulting in respiratory failure requiring intubation and mechanical ventilation. 2. Recurrent Biliary colic, awaiting cholecystectomy. 3. History of lap band leading to worsening nausea and vomiting 4. h/o obesity Recommendation: - continue Ventilator care as per pulmonary-w eaning plan for today - will discuss with Dr. Sandhu regarding EGD now vs release of lap band then EGD to evaluate her nausea - IV abx - continue IVF - at this time, no indication for ERCP as there is no CBD stone. 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 w/u showed symptomatic gallstones and was taken for cholecystectomy. However, patient aspirated during the inbation s/p bronchoscopy instead. Now patient is intubated, sedated. History taken from patient's family who is at bedside. Per family, patient is s/p lap band 6 yrs ago, since has progressively worsening n/ v. Family wants GI evaluation for her n/v. unable to obtain due to patient being intubated and sedated. Other ROS documented in HPI. Cardiovascular: no complaints Gastrointestinal: pain (less) Past Medical History Medical History: gallstones, GERD Past Surgical History lap band, rhinoplasty Family History Significant Family History: no pertinent family hx Social History smokes a lot of hookah Alcohol Use: none Smoking Status: Never smoker Drug Use: none Exam/Review of Systems Vital Signs Vitals Vital Signs Date Time Temp Pulse Resp B/P Pulse Ox O2 Delivery O2 Flow Rate FiO2 06/20/16 09:45 79 15 111/62 99 06/20/16 09:30 Mechanical Ventilator 06/20/16 08:00 45 06/20/16 08:00 99.3 Intake and Output 06/19/16 06/19/16 06/20/16 15:00 23:00 07:00 Intake Total 253 ml 744.94 ml 926.95 ml Output Total 130 ml 340 ml 265 ml Balance 123 ml 404.94 ml 661.95 ml Exam Constitutional: non-verbal Head: atraumatic, normocephalic Eyes: EOMI, nl conjunctiva, nl lids, nl sclera ENMT: mucosa pink and moist, nl external ears & nose, nl lips & teeth Neck: non-tender, supple Respiratory: clear to auscultation, normal air movement Cardiovascular: nl pulses, regular rate and rhythm Gastrointestinal: bowel sounds, nl liver, spleen, non-tender, soft Results Result Diagram: 06/20/16 0633 06/20/16 0633 Results 24 hrs Laboratory Tests Test 06/19/16 12:30 06/19/16 13:20 06/20/16 05:00 06/20/16 06:33 Arterial Blood HCO3 25.2 24.4 Arterial Blood Base Excess -0.8 -0.2 Arterial Blood Oxygen Saturation 88.6 L 98.1 H Evens Test ACCEPTAB ACCEPTAB Arterial Blood Gas Puncture Site Right Radial Right Radial Arterial Blood Carboxyhemoglobin 0.5 0.1 Arterial Blood Date Drawn 06/19/2016 12:25:54 PM 06/20/2016 4:46:31 AM Arterial Blood Methemoglobin 0.2 0.2 Arterial Blood pCO2 (Temp correct) 46.3 H 39.8 Arterial Blood pH (Temp corrected) 7.353 7.405 Arterial Blood pO2 (Temp corrected) 55.2 L 112.0 H Blood Gas A-a O2 Differential 249.2 H 272.0 H Blood Gas Actual Respiration Rate 23 16 Blood Gas Low PEEP Setting 5.0 5.0 Blood Gas Modality VENT - AC VENT - AC Blood Gas Notified Time 06/19/2016 12:33:45 PM 06/20/2016 4:57:47 AM Blood Gas Notified Whom TM LW Blood Gas Respiration Rate 14.0 14.0 Blood Gas Specimen Source Blood arterial Blood arterial Blood Gas Temperature 37.0 37.0 Blood Gas Tidal Volume 450.0 450.0 FiO2 50.0 60.0 Oxyhemoglobin Percent 88.0 L 97.8 Total Hemoglobin 14.8 13.4 Alanine Aminotransferase (ALT/SGPT) 30 28 Albumin 4.1 3.1 #L Albumin/Globulin Ratio 1.28 1.19 Alkaline Phosphatase 67 # 42 Anion Gap 22 #H 14 # Aspartate Amino Transf (AST/SGOT) 100 H 12 L Basophils # 0.0 0.0 Basophils % 0.2 0.0 Blood Urea Nitrogen 5 L 6 L Calcium Level 9.1 8.2 L Carbon Dioxide Level 22 26 Chloride Level 106 104 Creatinine 0.55 0.50 Direct Bilirubin 0.00 0.00 Eosinophils # 0.1 0.1 Eosinophils % 1.0 0.8 Globulin 3.20 2.60 Glucose Level 91 95 Hematocrit 46.7 # 35.5 #L Hemoglobin 15.6 # 12.2 # Indirect Bilirubin 0.8 1.0 Lymphocytes # 2.0 1.2 Lymphocytes % 17.4 8.3 L Mean Corpuscular Hemoglobin 29.6 30.0 Mean Corpuscular Hemoglobin Concent 33.5 34.3 Mean Corpuscular Volume 88.4 87.5 Mean Platelet Volume 9.8 10.1 Monocytes # 0.1 L 0.3 Monocytes % 0.4 2.0 Neutrophils # 9.2 H 12.3 H Neutrophils % 81.0 H 88.9 H Nucleated Red Blood Cells # 0.0 0.0 Nucleated Red Blood Cells % 0.0 0.0 Platelet Count 184 132 #L Potassium Level 3.7 3.4 L Red Blood Count 5.28 # 4.05 #L Red Cell Distribution Width 13.2 13.2 Sodium Level 146 H 141 Total Bilirubin 0.8 1.0 Total Protein 7.3 # 5.7 #L Troponin I < 0.010 White Blood Count 11.4 #H 13.9 #H Blood Gas Inspiratory Pressure 24.0 Activated Partial Thromboplast Time 26.3 INR International Normalized Ratio 1.38 Prothrombin Time 17.0 #H Prothrombin Time Ratio 1.3 Medications Medications Current Medications Dextrose/Sodium Chloride (D5-1/2ns) 1,000 ml @ 70 mls/hr [id number] IV Last administered on 06/20/16 04:41; Admin Dose 70 MLS/HR; Start 06/16/16 at 21:00 Pantoprazole (Protonix Iv) 40 mg DAILY@06 IV Last administered on 06/20/16 05: 50; Admin Dose 40 MG; Start 06/17/16 at 06:00 Ondansetron HCl (Zofran Inj) 4 mg Q4H PRN IV NAUSEA AND/OR VOMITING Last administered on 06/19/16 22:36; Admin Dose 4 MG; Start 06/16/16 at 21:00 Morphine Sulfate 2 mg 2 mg Q4H PRN IV severe pain Last administered on 22:01; Admin Dose 2 MG; Start 06/16/16 at 21:00 Propofol (Diprivan) 100 ml @ 2.244 mls/ hr Q12H IV Last administered on 09:37; Admin Dose 17.952 MLS/HR; Start 06/19/16 at 12:30 Enoxaparin Sodium 40 mg 40 mg DAILY SC Last administered on 06/19/16 14:08; Admin Dose 40 MG; Start 06/19/16 at 12:30 Piperacillin Sod/ Tazobactam Sod 100 ml @ 200 mls/hr Q6 IVPB Last administered on 06/20/16 05:50; Admin Dose 200 MLS/HR; Start 06/19/16 at 12:30 Fentanyl/Dextrose (D5W) 100 ml @ 2.5 mls/hr TITRATE IV Last administered on 15:18; Admin Dose 2.5 MLS/HR; Start 06/19/16 at 15:00 Lorazepam 2 mg 2 mg Q4 PRN IV Anxiety Last administered on 06/19/16 22:56; Admin Dose 2 MG; Start 06/19/16 at 23:00 Potassium Chloride/Sodium Chloride (KCl/NS) 110 ml @ 55 mls/hr ONCE ONCE IVPB ; Start 06/20/16 at 11:00; Stop 06/20/16 at 12:59 EM MILTON MD Jun 20, 2016 11:27
[2016-06-20] MEDS: ONDANSETRON 4 MG INJ IV PRN (12:21)
--- NOTE | 2016-06-20 13:02 | CONS ---
Date/Time of Note Date/Time of Note DATE: 06/20/16 TIME: 12:58 Consult Date/Type/Reason Admit Date/Time Jun 16, 2016 at 20:03 Initial Consult Date Type of Consultation: Pulm Subjective Awake and alert on propofol gtt and on MV. Objective Vital Signs Date Time Temp Pulse Resp B/P Pulse Ox O2 Delivery O2 Flow Rate FiO2 06/20/16 12:15 96 20 113/60 98 06/20/16 12:00 30 06/20/16 12:00 100.0 Mechanical Ventilator Intake and Output 06/19/16 06/19/16 06/20/16 15:00 23:00 07:00 Intake Total 253 ml 744.94 ml 926.95 ml Output Total 130 ml 340 ml 265 ml Balance 123 ml 404.94 ml 661.95 ml HEENT: Normocephalic, atraumatic. NECK: Supple, no thyromegaly. ET tube is in place. CARDIOVASCULAR: Regular rate and rhythm, bradycardic, S1 and S2. CHEST: Diffuse wheezing bilaterally, left greater than right. ABDOMEN: Soft, nontender. EXTREMITIES: No cyanosis, clubbing or edema. Results/Medications Result Diagram: 06/20/16 0633 06/20/16 0633 Results 24 hrs Laboratory Tests Test 06/19/16 13:20 06/20/16 05:00 06/20/16 06:33 Alanine Aminotransferase (ALT/SGPT) 30 28 Albumin 4.1 3.1 #L Albumin/Globulin Ratio 1.28 1.19 Alkaline Phosphatase 67 # 42 Anion Gap 22 #H 14 # Aspartate Amino Transf (AST/SGOT) 100 H 12 L Basophils # 0.0 0.0 Basophils % 0.2 0.0 Blood Urea Nitrogen 5 L 6 L Calcium Level 9.1 8.2 L Carbon Dioxide Level 22 26 Chloride Level 106 104 Creatinine 0.55 0.50 Direct Bilirubin 0.00 0.00 Eosinophils # 0.1 0.1 Eosinophils % 1.0 0.8 Globulin 3.20 2.60 Glucose Level 91 95 Hematocrit 46.7 # 35.5 #L Hemoglobin 15.6 # 12.2 # Indirect Bilirubin 0.8 1.0 Lymphocytes # 2.0 1.2 Lymphocytes % 17.4 8.3 L Mean Corpuscular Hemoglobin 29.6 30.0 Mean Corpuscular Hemoglobin Concent 33.5 34.3 Mean Corpuscular Volume 88.4 87.5 Mean Platelet Volume 9.8 10.1 Monocytes # 0.1 L 0.3 Monocytes % 0.4 2.0 Neutrophils # 9.2 H 12.3 H Neutrophils % 81.0 H 88.9 H Nucleated Red Blood Cells # 0.0 0.0 Nucleated Red Blood Cells % 0.0 0.0 Platelet Count 184 132 #L Potassium Level 3.7 3.4 L Red Blood Count 5.28 # 4.05 #L Red Cell Distribution Width 13.2 13.2 Sodium Level 146 H 141 Total Bilirubin 0.8 1.0 Total Protein 7.3 # 5.7 #L Troponin I < 0.010 White Blood Count 11.4 #H 13.9 #H Arterial Blood HCO3 24.4 Arterial Blood Base Excess -0.2 Arterial Blood Oxygen Saturation 98.1 H Evens Test ACCEPTAB Arterial Blood Gas Puncture Site Right Radial Arterial Blood Carboxyhemoglobin 0.1 Arterial Blood Date Drawn 06/20/2016 4:46:31 AM Arterial Blood Methemoglobin 0.2 Arterial Blood pCO2 (Temp correct) 39.8 Arterial Blood pH (Temp corrected) 7.405 Arterial Blood pO2 (Temp corrected) 112.0 H Blood Gas A-a O2 Differential 272.0 H Blood Gas Actual Respiration Rate 16 Blood Gas Inspiratory Pressure 24.0 Blood Gas Low PEEP Setting 5.0 Blood Gas Modality VENT - AC Blood Gas Notified Time 06/20/2016 4:57:47 AM Blood Gas Notified Whom LW Blood Gas Respiration Rate 14.0 Blood Gas Specimen Source Blood arterial Blood Gas Temperature 37.0 Blood Gas Tidal Volume 450.0 FiO2 60.0 Oxyhemoglobin Percent 97.8 Total Hemoglobin 13.4 Activated Partial Thromboplast Time 26.3 INR International Normalized Ratio 1.38 Prothrombin Time 17.0 #H Prothrombin Time Ratio 1.3 Medications Current Medications Dextrose/Sodium Chloride (D5-1/2ns) 1,000 ml @ 70 mls/hr [id number] IV Last administered on 06/20/16 04:41; Admin Dose 70 MLS/HR; Start 06/16/16 at 21:00 Pantoprazole (Protonix Iv) 40 mg DAILY@06 IV Last administered on 06/20/16 05: 50; Admin Dose 40 MG; Start 06/17/16 at 06:00 Ondansetron HCl (Zofran Inj) 4 mg Q4H PRN IV NAUSEA AND/OR VOMITING Last administered on 06/20/16 12:21; Admin Dose 4 MG; Start 06/16/16 at 21:00 Morphine Sulfate 2 mg 2 mg Q4H PRN IV severe pain Last administered on 22:01; Admin Dose 2 MG; Start 06/16/16 at 21:00 Propofol (Diprivan) 100 ml @ 2.244 mls/ hr Q12H IV Last administered on 09:37; Admin Dose 17.952 MLS/HR; Start 06/19/16 at 12:30 Enoxaparin Sodium 40 mg 40 mg DAILY SC Last administered on 06/19/16 14:08; Admin Dose 40 MG; Start 06/19/16 at 12:30 Piperacillin Sod/ Tazobactam Sod 100 ml @ 200 mls/hr Q6 IVPB Last administered on 06/20/16 12:03; Admin Dose 200 MLS/HR; Start 06/19/16 at 12:30 Fentanyl/Dextrose (D5W) 100 ml @ 2.5 mls/hr TITRATE IV Last administered on 15:18; Admin Dose 2.5 MLS/HR; Start 06/19/16 at 15:00 Lorazepam 2 mg 2 mg Q4 PRN IV Anxiety Last administered on 06/19/16 22:56; Admin Dose 2 MG; Start 06/19/16 at 23:00 Potassium Chloride/Sodium Chloride (KCl/NS) 110 ml @ 55 mls/hr ONCE ONCE IVPB Last administered on 06/20/16 11:57; Admin Dose 55 MLS/HR; Start 06/20/16 at 11 :00; Stop 06/20/16 at 12:59 Assessment/Plan Additional Assessment/Plan IMPRESSION: 1. Aspiration pneumonitis resulting in respiratory failure requiring intubation and mechanical ventilation 2. Cholecystitis, awaiting cholecystectomy. 3. Lap band contributing to aspiration event RECOMMENDATIONS: 1. CPAP 5 PS 8--> extubate 2. D/C OGT 3. Continue zosyn for now 4. BD's 5. Maintain NPO case d/w family in detail 40 min cc time WINNIE GUIDRY MD Jun 20, 2016 13:01
--- NOTE | 2016-06-20 23:38 | PN ---
Date/Time of Note Date/Time of Note DATE: 06/20/16 TIME: 23:38 Assessment/Plan Lines/Catheters IV Catheter Type (from Nrs): Peripheral IV Boss in Place (from Nrs): No Assessment/Plan Chief Complaint/Hosp Course 1. Abdominal pain. Could be secondary to symptomatic cholelithiasis, and/or gallbladder dyskinesia, and/or peptic ulcer disease, and/or gastritis and/or lap band issues. -antacids. -band adjustment (recommend full emptying but patient refuses and wants only a little bit removed) -outpt f/u with bariatric surgeon 2. History of morbid obesity. Status post lap band. Continue lap band maintenance. The patient will follow up with her bariatric surgeon. 3. Nausea. Probably secondary to #1. Improved 4. Tobacco/Hookah smoker. Patient was encouraged to decrease or stop her tobacco use, especially with Hookah, you get a higher intense dose of it. Thank you Problems: Subjective 24 Hr Interval Summary Extubated. No n/v. No respiratory difficulty. No f/c/cp/sob/cp/mcguire/visual or neuro changes. No dysuria. Min pain. Agrees to band being adjusted. Exam/Review of Systems Vital Signs Vitals Vital Signs Date Time Temp Pulse Resp B/P Pulse Ox O2 Delivery O2 Flow Rate FiO2 06/21/16 11:16 99.7 94 20 123/76 95 06/21/16 10:00 Room Air 06/20/16 22:00 2.0 06/20/16 13:00 30 Intake and Output 06/20/16 06/20/16 06/21/16 15:00 23:00 07:00 Intake Total 860.5 ml 530 ml 550 ml Output Total 700 ml 400 ml 200 ml Balance 160.5 ml 130 ml 350 ml Exam Free Text/Dictation GENERAL: In no acute distress. HEENT: Pupils are equal and reactive. No scleral icterus. Mucous membranes are moist. NECK: Supple. No JVD. No crepitus. PULMONARY: Normal respiratory effort. No wheezing. CARDIAC: S1, S2 present. ABDOMEN: Soft, nontender. No rebound, no guarding. Negative Cotton's. No palpable hernias. Her port is just left lateral and superior to the umbilicus. EXTREMITIES: No edema. VASCULAR: Capillary refill is less than 2 seconds. NEUROLOGIC: Alert and oriented, moves all 4 extremities grossly. LYMPHATICS: Normal cervical and inguinal lymph nodes. Results Result Diagram: 06/21/[id number]/16439 YONATHAN GARCIA MD Jun 20, 2016 23:38
[2016-06-21] VITALS (19 sets, daily range): BP systolic 92–125; BP diastolic 57–94; PULSE 86–108; RESP 12–32
[2016-06-21] MEDS: DEXTROSE 5%-0.45% NACL 1,000 ML IV SCH ×2 (00:08→15:24)
[2016-06-21] MEDS: PIPER-TAZO 3.375 GM IV (PMX) 100 ML IVPB SCH ×3 (00:09→12:02)
[2016-06-21 05:18] LABS: AADO2 Arterial 37.3 mmHg (7.0-24.0); Allen Test ACCEPTAB; Arterial Base Excess -1.6 mmol/L (-3.0-3); Arterial COHb 0.3 % (0.0-3.0); Arterial Fraction of Oxyhgb 93.2 % (93.0-99.0); Arterial HCO3 22.5 mmol/L (22.0-26.0); Arterial MetHb 0.3 % (0.0-1.5); Arterial Total Hemglobin 12.4 g/dl (12.0-18.0); MODE ROOM AIR
[2016-06-21 05:20] LABS: BASOPHILS % 0.1 % (0.0-2.0); EOSINOPHILS # 0.2 10^3/ul (0.0-0.5); EOSINOPHILS % 1.6 % (0.0-7.0); HEMATOCRIT 33.9 % (37.0-47.0); HEMOGLOBIN 11.4 g/dl (12.0-16.0); LYMPHOCYTES # 1.1 10^3/ul (0.8-2.9); LYMPHOCYTES % 10.5 % (15.0-51.0); MEAN CORPUSCULAR HEMOGLOBIN 29.6 pg (29.0-33.0); MEAN CORPUSCULAR HGB CONC 33.7 g/dl (32.0-37.0); MEAN CORPUSCULAR VOLUME 88.1 fl (82.0-101.0); MEAN PLATELET VOLUME 10.4 fl (7.4-10.4); MONOCYTE # 0.4 10^3/ul (0.3-0.9); MONOCYTES % 3.3 % (0.0-11.0); NEUTROPHIL # 9.1 10^3/ul (1.6-7.5); NEUTROPHILS % 84.5 % (39.0-77.0); PLATELET COUNT 123 10^3/UL (140-440); RED BLOOD COUNT 3.84 10^6/ul (4.20-5.40); UNCORRECTED WBC 10.8 10^3/ul (4.8-10.8); WHITE BLOOD COUNT 10.8 10^3/ul (4.8-10.8)
[2016-06-21 05:23] LABS: INR 1.31; PROTIME 16.4 Sec (12.2-14.2); PT RATIO 1.3
[2016-06-21 05:24] LABS: PARTIAL THROMBOPLASTIN TIME 35.4 Sec (25.0-35.0)
[2016-06-21 05:31] LABS: ALBUMIN 3.1 g/dl (3.3-4.9); POTASSIUM 3.5 mmol/L (3.5-5.1)
[2016-06-21 05:33] LABS: BILIRUBIN,INDIRECT 1.1 mg/dl (0-1.1); BILIRUBIN,TOTAL 1.1 mg/dl (0.2-1.3); CREATININE 0.5 mg/dl (0.44-1.00)
[2016-06-21 05:34] LABS: ALBUMIN/GLOBULIN RATIO 1.1; CALCIUM 8.2 mg/dl (8.4-10.2); TOTAL PROTEIN 5.9 g/dl (6.1-8.1)
[2016-06-21 05:36] LABS: CONDITION 1
[2016-06-21] MEDS: PANTOPRAZOLE 40 MG INJ IV SCH (05:45)
[2016-06-21] MEDS: ENOXAPARIN 40 MG/0.4 ML SYG SC SCH (08:49)
--- NOTE | 2016-06-21 08:51 | RADRPT ---
PROCEDURE: XR Chest AP portable CLINICAL INDICATION: Acute respiratory failure TECHNIQUE: An AP portable radiograph of the chest was submitted. COMPARISON: 06/20/2016 FINDINGS: Support Hardware: The patient has been extubated and the NG tube has been removed. Cardiovascular: The cardiovascular silhouette appears unremarkable. Lung [place]: There is slight interstitial infiltrate seen in the perihilar regions and discoid atele ctasis at the lung bases, improved from the previous. Pleural Spaces: No pneumothorax or pleural effusion is identified. Osseous Structures: There is a mild dextroscoliotic curve to the thoracic spine, unchanged. Soft Tissues: The soft tissues appear unremarkable. IMPRESSION: 1. Interval extubation and removal of the NG tube. 2. The cardiovascular silhouette again appears normal. 3. Perihilar interstitial infiltrate with discoid atelectasis seen at the lung bases, improved from the previous. 4. Persistent mild dextroscoliotic curve to the thoracic spine. Physician Raj Date Time Electronically viewed and signed by Physician Raj on 06/21/2016 08:51 /
[2016-06-21] MEDS ORDERED: LIDOCAINE 1%/EPI (MDV) 20 ML INJ SC ONE (12:00)
[2016-06-21] MEDS ORDERED: LIDOCAINE 1%/EPI 30 ML INJ SC ONE (12:30)
--- NOTE | 2016-06-21 13:33 | CONS ---
Date/Time of Note Date/Time of Note DATE: 06/21/16 TIME: 13:31 Consult Date/Type/Reason Admit Date/Time Jun 16, 2016 at 20:03 Initial Consult Date Type of Consultation: Pulm Subjective Patient extubated awake alert oriented comfortable at rest no acute distress Objective Vital Signs Date Time Temp Pulse Resp B/P Pulse Ox O2 Delivery O2 Flow Rate FiO2 06/21/16 11:16 99.7 94 20 123/76 95 06/21/16 10:00 Room Air 06/20/16 22:00 2.0 06/20/16 13:00 30 Intake and Output 06/20/16 06/20/16 06/21/16 15:00 23:00 07:00 Intake Total 860.5 ml 530 ml 550 ml Output Total 700 ml 400 ml 200 ml Balance 160.5 ml 130 ml 350 ml GENERAL: Young French lady comfortable at rest no acute distress VITAL SIGNS: per chart NECK: Supple. No JVD or lymphadenopathy. CARDIAC EXAM: S1, S2. No added sounds or murmurs. CHEST: clear bilaterally, No added sounds, rales or wheezes ABDOMEN: Soft, nontender. No guarding or rebound. EXTREMITIES: No cyanosis, clubbing or edema. NEUROLOGIC: Generalized weakness. No focal deficits. Results/Medications Result Diagram: 06/21/1643906/21/16439 Results 24 hrs Laboratory Tests Test 06/21/16 04:40 06/21/16 05:00 Activated Partial Thromboplast Time 35.4 H Alanine Aminotransferase (ALT/SGPT) 24 Albumin 3.1 L Albumin/Globulin Ratio 1.10 Alkaline Phosphatase 48 Anion Gap 14 Aspartate Amino Transf (AST/SGOT) 10 L Basophils # 0.0 Basophils % 0.1 Blood Urea Nitrogen 4 L Calcium Level 8.2 L Carbon Dioxide Level 27 Chloride Level 106 Creatinine 0.50 Direct Bilirubin 0.00 Eosinophils # 0.2 Eosinophils % 1.6 Globulin 2.80 Glucose Level 93 Hematocrit 33.9 L Hemoglobin 11.4 L INR International Normalized Ratio 1.31 Indirect Bilirubin 1.1 Lymphocytes # 1.1 Lymphocytes % 10.5 L Mean Corpuscular Hemoglobin 29.6 Mean Corpuscular Hemoglobin Concent 33.7 Mean Corpuscular Volume 88.1 Mean Platelet Volume 10.4 Monocytes # 0.4 Monocytes % 3.3 Neutrophils # 9.1 H Neutrophils % 84.5 H Nucleated Red Blood Cells # 0.0 Nucleated Red Blood Cells % 0.0 Platelet Count 123 L Potassium Level 3.5 Prothrombin Time 16.4 H Prothrombin Time Ratio 1.3 Red Blood Count 3.84 L Red Cell Distribution Width 13.0 Sodium Level 143 Total Bilirubin 1.1 Total Protein 5.9 L White Blood Count 10.8 # Arterial Blood HCO3 22.5 Arterial Blood Base Excess -1.6 Arterial Blood Oxygen Saturation 93.8 L Evens Test ACCEPTAB Arterial Blood Gas Puncture Site Right Radial Arterial Blood Carboxyhemoglobin 0.3 Arterial Blood Date Drawn 06/21/2016 4:55:38 AM Arterial Blood Methemoglobin 0.3 Arterial Blood pCO2 (Temp correct) 35.8 Arterial Blood pH (Temp corrected) 7.416 Arterial Blood pO2 (Temp corrected) 69.6 L Blood Gas A-a O2 Differential 37.3 H Blood Gas Actual Respiration Rate 20 Blood Gas Modality ROOM AIR Blood Gas Notified Time 06/21/2016 5:17:43 AM Blood Gas Notified Whom RTR Blood Gas Specimen Source Blood arterial Blood Gas Temperature 37.0 FiO2 21.0 Oxyhemoglobin Percent 93.2 Total Hemoglobin 12.4 Medications Current Medications Dextrose/Sodium Chloride (D5-1/2ns) 1,000 ml @ 70 mls/hr [id number] IV Last administered on 06/21/16 00:08; Admin Dose 70 MLS/HR; Start 06/16/16 at 21:00 Pantoprazole (Protonix Iv) 40 mg DAILY@06 IV Last administered on 06/21/16 05: 45; Admin Dose 40 MG; Start 06/17/16 at 06:00 Ondansetron HCl (Zofran Inj) 4 mg Q4H PRN IV NAUSEA AND/OR VOMITING Last administered on 06/20/16 12:21; Admin Dose 4 MG; Start 06/16/16 at 21:00 Morphine Sulfate (morphine) 2 mg Q4H PRN IV severe pain Last administered on 22:01; Admin Dose 2 MG; Start 06/16/16 at 21:00 Enoxaparin Sodium 40 mg 40 mg DAILY SC Last administered on 06/21/16 08:49; Admin Dose 40 MG; Start 06/19/16 at 12:30 Piperacillin Sod/ Tazobactam Sod (Zosyn 3.375gm/ 100 ml (Pmx)) 100 ml @ 200 mls /hr Q6 IVPB Last administered on 06/21/16 12:02; Admin Dose 200 MLS/HR; Start 06/19/16 at 12:30 Lorazepam (Ativan) 2 mg Q4 PRN IV Anxiety Last administered on 06/19/16 22:56; Admin Dose 2 MG; Start 06/19/16 at 23:00 Assessment/Plan Chief Complaint/Hosp Course IMPRESSION: 1. Aspiration pneumonitis resulting in respiratory failure requiring intubation and mechanical ventilation 2. Cholecystitis, status post left scopic cholecystectomy stable postoperatively. 3. Lap band contributing to aspiration event RECOMMENDATIONS: 1. Incentive spirometry 2. Encourage out of bed 3. Consider de-escalation of antibiotics soon 4. BD's 5. advance diet per surgery Transfer to [facility] from pulmonary standpoint Anticipate discharge tomorrow Problems: CODEY CABA MD, [facility] Jun 21, 2016 13:33
--- NOTE | 2016-06-21 15:41 | PDOCDIS ---
Discharge Instructions CONDITION Patient Condition: Stable HOME CARE INSTRUCTIONS: Diet Instructions: Low Fat /Cholesterol ACTIVITY: Activity Restrictions: Slowly Increase Activity FOLLOW UP/APPOINTMENTS Appointments F/U OWN PCP [address] VALERIE GARCIA 1 WK KASSI GARCIA MD Jun 21, 2016 15:41
[2016-06-21] MEDS ORDERED: PANT40TA3 PO (15:42)
[2016-06-21] MEDS ORDERED: LEVO500T72 PO (15:42)
--- NOTE | 2016-06-21 15:44 | PN ---
Date/Time of Note Date/Time of Note DATE: 06/21/16 TIME: 15:43 Assessment/Plan VTE Prophylaxis VTE Prophylaxis Intervention: other Lines/Catheters IV [facility]from [facility]): Peripheral IV Urinary Cath still in place: No Assessment/Plan Chief Complaint/Hosp Course IMPRESSION: 1. Abdominal pain. 2. Gallstone. 3. History of laparoscopic banding. 4 S/P RES FAILURE PLAN HOME Problems: Subjective 24 Hr Interval Summary ENT: no complaints Respiratory: no complaints Cardiovascular: no complaints Gastrointestinal: no complaints Exam/Review of Systems Vital Signs Vitals Vital Signs Date Time Temp Pulse Resp B/P Pulse Ox O2 Delivery O2 Flow Rate FiO2 06/21/16 11:16 99.7 94 20 123/76 95 06/21/16 10:00 Room Air 06/20/16 22:00 2.0 06/20/16 13:00 30 Intake and Output 06/20/16 06/20/16 06/21/16 15:00 23:00 07:00 Intake Total 860.5 ml 530 ml 550 ml Output Total 700 ml 400 ml 200 ml Balance 160.5 ml 130 ml 350 ml Exam Neck: supple Respiratory: clear to auscultation Cardiovascular: regular rate and rhythm Gastrointestinal: soft Results Result Diagram: 06/21/16 0440 06/21/16 0440 Results 24 hrs Laboratory Tests Test 06/21/16 04:40 06/21/16 05:00 Activated Partial Thromboplast Time 35.4 H Alanine Aminotransferase (ALT/SGPT) 24 Albumin 3.1 L Albumin/Globulin Ratio 1.10 Alkaline Phosphatase 48 Anion Gap 14 Aspartate Amino Transf (AST/SGOT) 10 L Basophils # 0.0 Basophils % 0.1 Blood Urea Nitrogen 4 L Calcium Level 8.2 L Carbon Dioxide Level 27 Chloride Level 106 Creatinine 0.50 Direct Bilirubin 0.00 Eosinophils # 0.2 Eosinophils % 1.6 Globulin 2.80 Glucose Level 93 Hematocrit 33.9 L Hemoglobin 11.4 L INR International Normalized Ratio 1.31 Indirect Bilirubin 1.1 Lymphocytes # 1.1 Lymphocytes % 10.5 L Mean Corpuscular Hemoglobin 29.6 Mean Corpuscular Hemoglobin Concent 33.7 Mean Corpuscular Volume 88.1 Mean Platelet Volume 10.4 Monocytes # 0.4 Monocytes % 3.3 Neutrophils # 9.1 H Neutrophils % 84.5 H Nucleated Red Blood Cells # 0.0 Nucleated Red Blood Cells % 0.0 Platelet Count 123 L Potassium Level 3.5 Prothrombin Time 16.4 H Prothrombin Time Ratio 1.3 Red Blood Count 3.84 L Red Cell Distribution Width 13.0 Sodium Level 143 Total Bilirubin 1.1 Total Protein 5.9 L White Blood Count 10.8 # Arterial Blood HCO3 22.5 Arterial Blood Base Excess -1.6 Arterial Blood Oxygen Saturation 93.8 L Evens Test ACCEPTAB Arterial Blood Gas Puncture Site Right Radial Arterial Blood Carboxyhemoglobin 0.3 Arterial Blood Date Drawn 06/21/2016 4:55:38 AM Arterial Blood Methemoglobin 0.3 Arterial Blood pCO2 (Temp correct) 35.8 Arterial Blood pH (Temp corrected) 7.416 Arterial Blood pO2 (Temp corrected) 69.6 L Blood Gas A-a O2 Differential 37.3 H Blood Gas Actual Respiration Rate 20 Blood Gas Modality ROOM AIR Blood Gas Notified Time 06/21/2016 5:17:43 AM Blood Gas Notified Whom RTR Blood Gas Specimen Source Blood arterial Blood Gas Temperature 37.0 FiO2 21.0 Oxyhemoglobin Percent 93.2 Total Hemoglobin 12.4 Medications Medications Current Medications Dextrose/Sodium Chloride (D5-1/2ns) 1,000 ml @ 70 mls/hr [id number] IV Last administered on 06/21/16 00:08; Admin Dose 70 MLS/HR; Start 06/16/16 at 21:00 Pantoprazole (Protonix Iv) 40 mg DAILY@06 IV Last administered on 06/21/16 05: 45; Admin Dose 40 MG; Start 06/17/16 at 06:00 Ondansetron HCl (Zofran Inj) 4 mg Q4H PRN IV NAUSEA AND/OR VOMITING Last administered on 06/20/16 12:21; Admin Dose 4 MG; Start 06/16/16 at 21:00 Morphine Sulfate (morphine) 2 mg Q4H PRN IV severe pain Last administered on 22:01; Admin Dose 2 MG; Start 06/16/16 at 21:00 Enoxaparin Sodium 40 mg 40 mg DAILY SC Last administered on 06/21/16 08:49; Admin Dose 40 MG; Start 06/19/16 at 12:30 Piperacillin Sod/ Tazobactam Sod (Zosyn 3.375gm/ 100 ml (Pmx)) 100 ml @ 200 mls /hr Q6 IVPB Last administered on 06/21/16 12:02; Admin Dose 200 MLS/HR; Start 06/19/16 at 12:30 Lorazepam (Ativan) 2 mg Q4 PRN IV Anxiety Last administered on 06/19/16 22:56; Admin Dose 2 MG; Start 06/19/16 at 23:00 KASSI GARCIA MD Jun 21, 2016 15:44
--- NOTE | 2016-06-21 15:57 | RADRPT ---
PROCEDURE: Chest 2 views. CLINICAL INDICATION: Shortness of breath, pneumonia TECHNIQUE: PA and lateral views of the chest were obtained. COMPARISON: June 21, 2016 at 07:34 a.m. FINDINGS: The cardiomediastinal silhouette is within normal limits. Patchy perihilar infiltrates in the left u pper lobe are stable. Patchy infiltrates in the right upper and lower lungs are stable. Osseous st ructures are intact. IMPRESSION: Stable mild patchy infiltrates throughout the right lung and in the left upper lobe. RPTAT: AA .Alexander Gong MD, MD Date Time Electronically viewed and signed by .Alexander Gong MD, on 06/21/2016 15:57 .P/
--- NOTE | 2016-06-21 21:01 | PN ---
Date/Time of Note Date/Time of Note DATE: 06/21/16 TIME: 21:00 Assessment/Plan Lines/Catheters IV Catheter Type (from [facility]): Peripheral IV Boss in Place (from [facility]): No Assessment/Plan Chief Complaint/Hosp Course 1. Abdominal pain. Could be secondary to symptomatic cholelithiasis, and/or gallbladder dyskinesia, and/or peptic ulcer disease, and/or gastritis and/or lap band issues. -antacids. -band adjustment (recommend full emptying but patient refuses and wants only a little bit removed) -outpt f/u with bariatric surgeon 2. History of morbid obesity. Status post lap band. Continue lap band maintenance. The patient will follow up with her bariatric surgeon. 3. Nausea. Probably secondary to #1. Improved 4. Tobacco/Hookah smoker. Patient was encouraged to decrease or stop her tobacco use, especially with Hookah, you get a higher intense dose of it. Thank you Problems: Subjective 24 Hr Interval Summary No n/v. No respiratory difficulty. No f/c/cp/sob/cp/mcguire/visual or neuro changes. No dysuria. Min pain. Agrees to band being adjusted. Exam/Review of Systems Vital Signs Vitals Vital Signs Date Time Temp Pulse Resp B/P Pulse Ox O2 Delivery O2 Flow Rate FiO2 06/21/16 11:16 99.7 94 20 123/76 95 06/21/16 10:00 Room Air 06/20/16 22:00 2.0 06/20/16 13:00 30 Intake and Output 06/20/16 06/20/16 06/21/16 15:00 23:00 07:00 Intake Total 860.5 ml 530 ml 550 ml Output Total 700 ml 400 ml 200 ml Balance 160.5 ml 130 ml 350 ml Exam Free Text/Dictation GENERAL: In no acute distress. HEENT: Pupils are equal and reactive. No scleral icterus. Mucous membranes are moist. NECK: Supple. No JVD. No crepitus. PULMONARY: Normal respiratory effort. No wheezing. CARDIAC: S1, S2 present. ABDOMEN: Soft, nontender. No rebound, no guarding. Negative Cotton's. No palpable hernias. Her port is just left lateral and superior to the umbilicus. EXTREMITIES: No edema. VASCULAR: Capillary refill is less than 2 seconds. NEUROLOGIC: Alert and oriented, moves all 4 extremities grossly. LYMPHATICS: Normal cervical and inguinal lymph nodes. Results Result Diagram: 06/21/1643906/21/16439 YONATHAN GARCIA MD Jun 21, 2016 21:01
--- NOTE | 2016-06-21 21:05 | OPR ---
Date/Time of Note Date/Time of Note DATE: 06/21/16 TIME: 21:02 Operative Report Procedure Date: Jun 21, 2016 Preoperative Diagnosis Tight lap band with associated nausea, vomiting, and abdominal pain. Postoperative Diagnosis Same Operation Performed Lap band adjustment Surgeon: YONATHAN GARCIA MD Estimated Blood Loss: none Specimens None Tubes/Drains None Complications: None Pt Condition Post Procedure: stable Disposition: other (in room stable) Indications Per notes Risks benefits and alternatives explained to patient, mother, aunt, multiple family members as per usual. Patient agrees to proceed but only wants the band adjusted minimally Procedure Description Patient was placed supine on her bed. Area was prepped and draped sterilely. Timeout was performed. Port was identified in the abdominal wall. Summers needle was directly placed into the port with one stick. Total saline in the band were about 7 mL's. 1.5 mL was removed. Patient given fluids and tolerates without nausea or vomiting K Copps or coughing. She states she feels a fluid easily going down. She does not want anymore removed. Needle was removed. Band-Aid was applied. YONATHAN GARCIA MD Jun 21, 2016 21:05
--- NOTE | 2016-06-22 17:34 | QN ---
Documentation Comment [id number] KASSI GARCIA MD Jun 22, 2016 17:34
--- NOTE | 2016-06-22 21:43 | DS ---
DATE OF ADMISSION: 06/16/2016 DATE OF DISCHARGE: 06/21/2016 HOSPITAL COURSE: The patient was admitted with diagnosis of gallstone. The patient, later on, was seen by Dr. Cruz Sandhu, underwent preparation for cholecystectomy, but patient's respiratory failur e, was intubated, and successfully extubated. The patient also had a tight lap band associated with nausea, vomiting, abdominal pain. A lap band adjustment was done. Leukocytosis, resolved. The pa tient's lung infiltrate resolving. The patient was cleared to be discharged home. DISCHARGE DIAGNOSES: 1. Gallstone. 2. Status post respiratory failure in attempt to prepare the patient for cholecystectomy. 3. Lap band adjustment. 4. Leukocytosis. 5. Lung infiltrate. DISCHARGE MEDICATIONS: The patient was given prescriptions for: 1. Levofloxacin. 2. Protonix. FOLLOWUP: The patient to follow up with PCP and Dr. Cruz Sandhu as an outpatient. DISCHARGE CONDITION: The patient is stable at the time of discharge. Dictated By: KASSI BETANCOURT/GENOVEVA Conf#: [id number] DID#: [id number]
== END 2016-06-21 17:25 | disposition home or self-care (01) | DRG 444 ==
LOC: MS2 20:03 → ICU 06-19 11:40 → MS2 06-21 11:00
PROVIDERS: ADMIT Internal Medicine Nephrology; ATTEND Internal Medicine Nephrology
PROC: 5A1945Z Respiratory Ventilation, 24-96 Consecutive Hours (ICD-10-PCS; 2016-06-19)
PROC: 0BH17EZ Insertion of Endotracheal Airway into Trachea, Via Natural or Artificial Opening (ICD-10-PCS; principal; 2016-06-19 09:00)
DX: K80.10 Calculus of gallbladder with chronic cholecystitis without obstruction (principal); J69.0 Pneumonitis due to inhalation of food and vomit; J96.90 Respiratory failure, unspecified, unspecified whether with hypoxia or hypercapnia; Z98.84 Bariatric surgery status; Z72.0 Tobacco use; R11.0 Nausea; K82.8 Other specified diseases of gallbladder; Z46.51 Encounter for fitting and adjustment of gastric lap band; Z53.09 Procedure and treatment not carried out because of other contraindication; J98.01 Acute bronchospasm
CPT/HCPCS: 36600; 71010; 71020; 78226; 80053; 82150; 82803; 83690; 84439; 84443; 84484; 85025; 85610; 85730; 87081; 93005; 94002; 94003; 94770; A9537; C9113; J0171; J0330; J0690; J1100; J1650; J2060; J2250; J2270; J2405; J2543; J2795; J3010; J3480; J7042